=== PATIENT | female | born 1975 | race Caucasian/White ===

== ENCOUNTER 2017-11-29 15:46 | Inpatient (IN) | payer OTHER ==
[~2017-11-29] VITALS: Ht 162.6 cm; Wt 105.3 kg
[2017-11-29 16:56] LABS: HEMATOCRIT 25.3 % (36.0-46.0); HEMOGLOBIN 8.1 G/DL (11.9-15.5); MCH 31.4 PG (29.0-34.0); MCV 98.1 FL (83-99); NRBC (%) 0.4 /100 WBC (0-0); PLATELET COUNT 88 K/uL (156-360); RBC DIS.WIDTH-CV 23.4 % (11.8-14.6); RBC DIS.WIDTH-SD 81.8 % (39-53); RED BLOOD COUNT 2.58 M/uL (3.80-5.20); WHITE BLOOD COUNT 5.1 K/uL (4.1-10.2)
[2017-11-29 17:05] LABS: BASOPHIL (%) 0.2 % (0-1); EOSINOPHIL (%) 1.8 % (0-5); EOSINOPHIL COUNT 0.1 K/uL (0-0.3); IMMATURE GRANULOCYTE (%) 0.8 % (0.0-0.7); LYMPHOCYTE (%) 42.6 % (15-42); LYMPHOCYTE COUNT 2.2 K/uL (1.0-2.8); MONOCYTE (%) 11.8 % (3-12); MONOCYTE COUNT 0.6 K/uL (0-0.8); NEUTROPHIL (%) 42.8 % (45-76); NEUTROPHIL COUNT 2.2 K/uL (1.8-6.4)
[2017-11-29 17:06] LABS: ALBUMIN 2.9 g/dL (3.2-4.8); CHLORIDE 89 mEq/L (99-109); POTASSIUM 4.4 mEq/L (3.7-5.4); SODIUM 128 mEq/L (136-147)
[2017-11-29 17:08] LABS: GLUCOSE 157 mg/dL (70-99); TOTAL PROTEIN 7.1 g/dL (6.4-8.3)
[2017-11-29 17:10] LABS: TOTAL BILIRUBIN 0.9 mg/dL (0.0-1.0)
[2017-11-29 17:12] LABS: ALKALINE PHOSPHATASE 260 IU/L (3-129); CREATININE 3.7 mg/dL (0.6-1.3); GFR ESTIMATE (CALCULATED) 14 mL/min/
[2017-11-29 17:13] LABS: UREA NITROGEN (BUN) 40 mg/dL (9-23)
[2017-11-29 17:14] LABS: AST (GOT) 45 IU/L (2-34)
[2017-11-29 17:15] LABS: ALT (GPT) 29 IU/L (3-49)
[2017-11-29 17:18] LABS: TROP-I INTERPRETATION NEGATIVE; TROPONIN-I 0.04 ng/mL (0.0-0.30)
[2017-11-29] MEDS ORDERED: RENVELA800 MG PO (17:23)
[2017-11-29 17:56] LABS: INTER. NORMALIZED RATIO 1.7
[2017-11-29 17:59] LABS: PTT 31.4 SEC (25-37)
[2017-11-29] MEDS ORDERED: PANTOPRAZOLE SO40 MG PO (19:01)
[2017-11-29] MEDS ORDERED: COREG25 M1 PO (19:02)
[2017-11-29] MEDS ORDERED: COUMADIN5 MG PO (19:02)
[2017-11-29] MEDS ORDERED: COMPAZINE5 MG PO (19:02)
[2017-11-29] MEDS ORDERED: REGLAN5 MG PO (19:03)
[2017-11-29] MEDS ORDERED: FOLIC ACID1 MG PO (19:04)
[2017-11-29] MEDS ORDERED: LO-DOSE ASPIRIN81 M1 PO (19:05)
[2017-11-29] MEDS ORDERED: TYLENOL EXTRA500 MG PO (19:05)
[2017-11-29] MEDS ORDERED: CARAFATE100 MG/ML PO (19:05)
[2017-11-29 22:36] VITALS: BP 154/109
[2017-11-30 03:00] VITALS: BP 139/95
[2017-11-30 05:34] LABS: INTER. NORMALIZED RATIO 1.7
[2017-11-30 05:48] LABS: CHLORIDE 89 MEQ/L (99-109); POTASSIUM 4.7 MEQ/L (3.7-5.4); SODIUM 128 MEQ/L (136-147)
[2017-11-30 05:53] LABS: HEMATOCRIT 23.9 % (36.0-46.0); HEMOGLOBIN 7.5 G/DL (11.9-15.5); MCH 30.7 PG (29.0-34.0); MCHC 31.4 G/DL (30.0-36.0); RBC DIS.WIDTH-CV 23.2 % (11.8-14.6); RED BLOOD COUNT 2.44 M/uL (3.80-5.20); WHITE BLOOD COUNT 4.7 K/uL (4.1-10.2)
[2017-11-30 05:54] LABS: CREATININE 4.3 MG/DL (0.6-1.3); GFR ESTIMATE (CALCULATED) 12 mL/min/; GLUCOSE 141 mg/dL (70-99); UREA NITROGEN (BUN) 42 mg/dL (9-23)
[2017-11-30 06:31] LABS: PLAT.SUFFICIENCY VERY DECREASED; PLATELET COUNT 78 K/uL (156-360)
[2017-11-30 07:55] VITALS: BP 138/103
[2017-11-30 11:46] VITALS: BP 129/93
[2017-11-30 21:30] VITALS: BP 133/92
[2017-12-01] VITALS (7 sets, daily range): BP systolic 127–150; BP diastolic 86–101
[2017-12-01 12:41] LABS: HEMATOCRIT 26.2 % (36.0-46.0); MCH 30.9 PG (29.0-34.0); MCHC 30.5 G/DL (30.0-36.0); MCV 101.2 FL (83-99); PLATELET COUNT 83 K/uL (156-360); RBC DIS.WIDTH-CV 24.1 % (11.8-14.6); RBC DIS.WIDTH-SD 85.3 % (39-53); RED BLOOD COUNT 2.59 M/uL (3.80-5.20); WHITE BLOOD COUNT 4.2 K/uL (4.1-10.2)
[2017-12-01 12:59] LABS: CHLORIDE 86 MEQ/L (99-109); GFR ESTIMATE (CALCULATED) 15 mL/min/; GLUCOSE 133 mg/dL (70-99); POTASSIUM 4.9 MEQ/L (3.7-5.4); SODIUM 123 MEQ/L (136-147); UREA NITROGEN (BUN) 32 mg/dL (9-23)
[2017-12-01 13:06] LABS: CREATININE 3.5 MG/DL (0.6-1.3)
[2017-12-02 04:00] VITALS: BP 121/89
[2017-12-02 07:42] VITALS: BP 134/87
[2017-12-02 08:54] LABS: HEMATOCRIT 24.1 % (36.0-46.0); HEMOGLOBIN 7.5 G/DL (11.9-15.5); MCH 31.1 PG (29.0-34.0); MCHC 31.1 G/DL (30.0-36.0); PLATELET COUNT 80 K/uL (156-360); RBC DIS.WIDTH-CV 23.6 % (11.8-14.6); RBC DIS.WIDTH-SD 82.9 % (39-53); RED BLOOD COUNT 2.41 M/uL (3.80-5.20); WHITE BLOOD COUNT 4.1 K/uL (4.1-10.2)
[2017-12-02 08:59] LABS: INTER. NORMALIZED RATIO 2.2
[2017-12-02 09:04] LABS: CHLORIDE 87 MEQ/L (99-109); POTASSIUM 4.8 MEQ/L (3.7-5.4); SODIUM 123 MEQ/L (136-147)
[2017-12-02 09:09] LABS: CREATININE 3.8 MG/DL (0.6-1.3); GFR ESTIMATE (CALCULATED) 14 mL/min/; GLUCOSE 161 mg/dL (70-99); UREA NITROGEN (BUN) 38 mg/dL (9-23)
[2017-12-02 12:46] VITALS: BP 130/98
[2017-12-02 15:42] VITALS: BP 134/90
== END 2017-12-02 21:00 | disposition left against medical advice (07) | DRG 189 ==
LOC: EME 15:46 → 4EAST 20:39 → EDOF 20:39 → ENRESERV 20:52 → 4EAST 22:19
PROVIDERS: Emergency Medicine; Hospitalist; Internal Medicine
PROC: 5A1D70Z Performance of Urinary Filtration, Intermittent, Less than 6 Hours Per Day (ICD-10-PCS; principal; 2017-11-30)
DX: J96.01 Acute respiratory failure with hypoxia (principal); I13.2 Hypertensive heart and chronic kidney disease with heart failure and with stage 5 chronic kidney disease, or end stage renal disease; I50.33 Acute on chronic diastolic (congestive) heart failure; N18.6 End stage renal disease; D63.1 Anemia in chronic kidney disease; I48.0 Paroxysmal atrial fibrillation; N25.81 Secondary hyperparathyroidism of renal origin; I27.20 Pulmonary hypertension, unspecified; I42.9 Cardiomyopathy, unspecified; I44.0 Atrioventricular block, first degree; R59.9 Enlarged lymph nodes, unspecified; E66.9 Obesity, unspecified; Z68.38 Body mass index [BMI] 38.0-38.9, adult; Z95.2 Presence of prosthetic heart valve; Z79.01 Long term (current) use of anticoagulants; F19.10 Other psychoactive substance abuse, uncomplicated; Z72.0 Tobacco use; Z79.82 Long term (current) use of aspirin; Z86.14 Personal history of Methicillin resistant Staphylococcus aureus infection; Z90.2 Acquired absence of lung [part of]; Z99.2 Dependence on renal dialysis; Z82.49 Family history of ischemic heart disease and other diseases of the circulatory system
CPT/HCPCS: 71046; 78582; 80048; 80053; 83880; 84484; 85025; 85027; 85610; 85730; 87040; 87070; 87205; 87641; 93005; 93306; 93970; 94760; 94799; 99281; 99285; A9540; A9567; J0692; J0881; J1270; J1644; J1756; J1940; J2020; J2405; J7050; Q0164